=== PATIENT | male | born 1970 | race Hispanic/Latino ===

== ENCOUNTER 2023-09-16 11:58 | Outpatient (RCR) | payer OTHER, SELFPAY | END 2023-09-16 23:59 | disposition home or self-care (01) | LOC: ROT 11:58 | PROVIDERS: ATTENDING PHYSICIAN Orthopaedic Surgery | DX: M77.11 Lateral epicondylitis, right elbow (principal); Z73.6 Limitation of activities due to disability | CPT/HCPCS: 97010; 97014; 97110; 97140; 97166; 97535 ==

== ENCOUNTER → 2024-08-17 16:11 | Outpatient (REF) | payer OTHER, SELFPAY ==
[2024-08-17 17:16] LABS: PSA, Total - Screen 5.24 ng/ml (0.0-4.0)
[2024-08-18 10:05] LABS: Glycohemoglobin (HgbA1c) 5.7 % (4.0-5.6)
== END ==
LOC: CLINIC 16:11
PROVIDERS: ATTENDING PHYSICIAN Internal Medicine
DX: R97.20 Elevated prostate specific antigen [PSA] (principal); R73.03 Prediabetes
CPT/HCPCS: 36415; 83036; G0103